=== PATIENT | female | born 1995 | race Caucasian/White ===

== ENCOUNTER 2016-08-11 13:24 | Emergency (ER) | payer BC ==
[2016-08-11 13:32] VITALS: BP 126/77
--- NOTE | 2016-08-11 14:31 | ER Document Report ---
HPI - HPI Patient complains to provider of: FB in throat Onset: Yesterday Onset/Duration: Persistent Quality of pain: Achy Pain Level: 2 Context: Pt states that she was eating gummy worm candy yesterday around 11 PM, and felt like some of the candy got stuck in her throat. Patient states that she has been eating and drinking food and liquids last night after this happened as well as this morning without difficulty. Patient denies any difficulty breathing or vomiting. Associated Symptoms: Other - FB sensation in throat Exacerbated by: Denies Relieved by: Denies Similar symptoms previously: No Recently seen / treated by doctor: No - ROS ROS below otherwise negative: Yes Systems Reviewed and Negative: Yes All other systems reviewed and negative - CONSTITUTIONAL Constitutional: DENIES: Fever, Chills - EENT EENT: REPORTS: Sore Throat. DENIES: Ear Pain, Congestion - NEURO Neurology: DENIES: Headache - RESPIRATORY Respiratory: DENIES: Coughing - GASTROINTESTINAL Gastrointestinal: DENIES: Abdominal Pain, Nausea, Patient vomiting, Diarrhea - MUSCULOSKELETAL Musculoskeletal: DENIES: Neck Pain - DERM Skin Color: Normal Past Medical History - General Information source: Patient - Social History Smoking Status: Never Smoker Frequency of alcohol use: None Drug Abuse: None Lives with: Family Family History: Reviewed & Not Pertinent Patient has suicidal ideation: No Patient has homicidal ideation: No - Medical History Medical History: Negative Renal/ Medical History: Denies: Hx Peritoneal Dialysis Surgical Hx: Negative - Immunizations Immunizations up to date: Yes Vertical Provider Document - CONSTITUTIONAL Agree With Documented VS: Yes Exam Limitations: No Limitations General Appearance: WD/WN, No Apparent Distress - INFECTION CONTROL TRAVEL OUTSIDE OF THE [place] IN LAST 30 DAYS: Yes COUNTRY TRAVELED TO/FROM: [facility] - [facility] HEENT: Atraumatic, Normal ENT Exam, Normocephalic Notes: no sublingual or submental swelling, no stridor, patient able to manage her oral secretions. - NECK Neck: Normal Inspection, Supple. negative: Lymphadenopathy-Left, Lymphadenopathy-Right - RESPIRATORY Respiratory: Breath Sounds Normal, No Respiratory Distress, Chest Non-Tender. negative: Rales, Rhonchi, Wheezing O2 Sat by Pulse Oximetry: 99 - CARDIOVASCULAR Cardiovascular: Regular Rate, Regular Rhythm, No Murmur - MUSCULOSKELETAL/EXTREMETIES Musculoskeletal/Extremeties: MAEW - NEURO Level of Consciousness: Awake, Alert, Appropriate Motor/Sensory: No Motor Deficit - DERM Integumentary: Warm, Dry, No Rash Course - Re-evaluation Re-evalutation: 08/11/[address] Agosto regarding patient management. Advises giving patient carbonated beverage and good return precautions. - Vital Signs Vital signs: Temp Pulse Resp BP Pulse Ox 98.0 F 92 18 126/77 H 99 08/11/16 13:30 08/11/16 13:30 08/11/16 13:30 08/11/16 13:30 08/11/16 13:30 Discharge - Discharge Clinical Impression: Foreign body sensation in throat Condition: Stable Disposition: HOME, SELF-CARE Instructions: Family Physicians / Practices Additional Instructions: Return immediately for any new or worsening symptoms, difficulty breathing, difficulty swallowing, vomiting, or any concerning symptoms Followup with your primary care provider, call tomorrow to make a followup appointment Follow up with Ear nose and throat doctor for any continued problems Referrals: [facility] [Provider Group] - Follow up as needed
== END 2016-08-11 14:30 | disposition home or self-care (01) ==
LOC: ER 13:24
DX: R09.89 Other specified symptoms and signs involving the circulatory and respiratory systems (principal); J02.9 Acute pharyngitis, unspecified
CPT/HCPCS: 99283